=== PATIENT | male | born 1975 | race Caucasian/White ===

== ENCOUNTER 2018-08-20 07:03 | Day surgery (SDC) | payer OTHER ==
[~2018-08-20] VITALS: Ht 190.5 cm; Wt 103.9 kg
[~2018-08-20 07:03] MED LIST: ATOR10 PO; MELO7.5 PO; TESTOSTERONE2.5 GM
== END 2018-08-20 23:01 | disposition home or self-care (01) ==
LOC: ORSCMMR 07:03 → ORD 07:30 → ORSCMMR 08:30 → ORD 08:30 → ORSCMMR 23:01
PROVIDERS: Surgery
PROC: 0WUF0JZ Supplement Abdominal Wall with Synthetic Substitute, Open Approach (ICD-10-PCS; principal; 2018-08-20 08:30)
DX: K42.9 Umbilical hernia without obstruction or gangrene (principal); E78.00 Pure hypercholesterolemia, unspecified; Z79.899 Other long term (current) drug therapy
CPT/HCPCS: C1781; J0690; J1100; J2250; J2405; J2710; J3010; J7120